=== PATIENT | female | born 2000 | race African-American/Black ===

== ENCOUNTER 2018-03-05 14:10 | Emergency (ER) | payer MEDICAID, OTHER ==
[~2018-03-05] VITALS: Ht 154.9 cm; Wt 41.7 kg
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
[2018-03-05] MEDS ORDERED: IBUPROFEN 600 MG TABLET PO ONE (16:00)
--- NOTE | 2018-03-05 16:00 | NUR ---
Patient discharged to home in stable condition. Written and verbal after care instructions given. Patient verbalizes understanding of instruction.
[2018-03-05 16:15] VITALS: BP 126/88
== END 2018-03-05 16:15 | disposition home or self-care (01) ==
LOC: ER 14:12
DX: S33.5XXA Sprain of ligaments of lumbar spine, initial encounter (principal); Z60.2 Problems related to living alone; V49.09XA Driver injured in collision with other motor vehicles in nontraffic accident, initial encounter; Y93.89 Activity, other specified; Y92.410 Unspecified street and highway as the place of occurrence of the external cause; Y99.8 Other external cause status
CPT/HCPCS: 99283; A4606; Z7610